=== PATIENT | male | born 1955 | race Caucasian/White ===

== ENCOUNTER 2020-12-11 16:19 | Emergency (ER) | payer OTHER ==
[~2020-12-11] VITALS: Ht 172.7 cm; Wt 98.5 kg
[2020-12-11 16:28] VITALS: BP 170/107
== END 2020-12-11 17:08 | disposition home or self-care (01) ==
LOC: ER 16:20
DX: G89.29 Other chronic pain (principal); Z76.0 Encounter for issue of repeat prescription
CPT/HCPCS: 99281